=== PATIENT | female | born 1960 | race Caucasian/White ===

== ENCOUNTER 2024-01-25 07:29 | Day surgery (SDC) | payer MEDICARE, SELFPAY ==
[2024-01-25 07:46] VITALS: BP 133/79; PULSE 86; RESP 16; TEMP 36.4; O2SAT 96; BMI 21.2
[2024-01-25] MEDS: Lactated Ringers 1,000 ML 15 ML IV (07:49)
--- NOTE | 2024-01-25 08:46 | PCM.HP.BLA ---
History and Physical Date of Admission: 01/25/24 Date of Service: 01/21/24 MR#: [id number] Acct: [id number] Name: MONIKA REY Rep #: [id number] : 1960 Provider: Dr. Cristela Chavis MD Age/Sex: 64/F Location: [facility] Status: Signed Intake Vital Signs 01/11/2409:15 01/11/2410:01/20/2413:35 Height 5 ft 1 in 5 ft 1 in 5 ft 1 in Weight: 118 lb 117 lb BMI 22.3 22.1 BP 121/78 H 133/72 H Blood Pressure Location Lt brachial Rt brachial Position Sitting Sitting Respiration 18 18 Pulse 90 90 Pulse Source Monitor Monitor Temp 97.9 F 97.4 F L Temp Source Temporal Pulse Oximetry (%) 96 Oxygen Delivery Method room air Intake Visit Reasons: Colonoscopy and EGD Chief Complaint: colonoscopy EGD Is patient in pain?: No Allergies Penicillins Allergy (Unknown, Verified 01/21/24 13:36) hives Medications ?Medication ?Instructions ?Recorded ?Confirmed ?Type citalopram 10 mg tablet 10 mg PO DAILY 11/15/23 12/09/23 History cyclobenzaprine 5 mg tablet 5 mg PO TID PRN 11/15/23 12/09/23 History tramadol 50 mg tablet 50 mg PO TID PRN 11/15/23 12/09/23 History allergy shots IM .weekly 11/25/23 12/09/23 History multivitamin 1 tab PO DAILY 11/25/23 12/09/23 History ferrous sulfate 325 mg (65 mg 325 mg PO DAILY 01/12/24 01/12/24 History iron) tablet omeprazole 40 mg capsule,delayed 40 mg PO QDAY #30 caps 01/21/24 01/21/24 Rx release PFSH Medical History Squamous cell carcinoma GERD (gastroesophageal reflux disease) CLL (chronic lymphocytic leukemia) Anemia Surgical History History of bunionectomy of right great toe History of tonsillectomy History of hysterectomy History of cervical biopsy Family History Sister Breast cancerUnknown CLL (chronic lymphocytic leukemia) 2 first cousins Social History Smoking Status: Former smoker quit date: 11/25/23 Tobacco: How many years used: 7 alcohol intake: never substance use type: does not use HPI HPI HPI: 64-year-old female presents for EGD and colonoscopy. Patient has a past medical history for CLL has had an increase in her leukocytosis from 145?209 did see hematology/oncology who encouraged patient to get EGD and colonoscopy as patient has also been having abdominal pain and nausea. Patient states she is never had an EGD. Patient's last colonoscopy was about 2 years ago in [place] had a tubular normal at that time. Patient states that she does have issues with chronic constipation and does feel sick every time she has a bowel movement which involves sweating nausea, this has been chronic. Patient states in her 20s they may have discussed lateral sphincterotomy due to possible fissure, which is the best patient can remember. Patient states lately she has not been eating as much because the epigastric pain and nausea. Patient was hospitalized in [place] in September patient states she was put on sounds like Protonix which helped. Patient did run out she only had it for 30 days. Currently on lansoprazole which patient states not help as much. Patient does drink place 1 protein drinks a day was trying to do some intermittent fasting as she was doing that previously when she was feeling well as well. ROS General General: Yes weight change and fatigue; No appetite, colon cancer, breast cancer or weakness HEENT HEENT: Yes eye surgery and swollen glands; No difficulty swallowing, eye injury or hoarseness Endo Endocrine: No thyroid disease, diabetes mellitus, thyroid cancer, Hair loss, heat intolerance or cold intolerance Skin Skin: Yes changing moles; No rash Musc Musculoskeletal: Yes back problems; No arthritis, rheumatoid arthritis, gout or joint pain Cardio Cardiovascular: No murmur, pacemaker, heart disease, atrial fibrillation, high blood pressure, heart attack, heart stent, palpitations, shortness of breat with exertion or chest pain Psych Psychiatric: Yes anxiety; No depression or hearing voices Resp Respiratory: No shortness of breath, No sleep apnea, No cough, No COPD, No asthma, No emphysema and No wheezing Gastro Gastrointestinal: Yes abdominal pain, Yes nausea or vomiting, No diarrhea, Yes constipation, No blood in stool, No acid reflux, Yes hemorrhoids, No ulcers, No gallbladder problem and No black,tarry stools Jermaine Hematologic: No blood thinners, No blood disorders, No bleeding, Yes anemia and No blood clots Neuro Neurologic: No numbness, No tingling and No weakness Exam Const General: cooperative, healthy appearing, comfortable and no acute distress HENMT Head: normocephalic and atraumatic Neck Neck: supple Resp Effort & Inspection: normal respiratory effort Cardio Rate: regular rate GI Inspection: non-distended Palpation: soft, no hernias and tender in the epigastrum; with no rebound tenderness Skin General: no rashes or lesions noted Neuro General: CN's II-XI intact bilaterally Extrem General: normal to inspection Psych Mental Status: mental status grossly normal Attitude: cooperative Assessment and Plan Assessment and Plan (1) GERD (gastroesophageal reflux disease): Status: Chronic (2) Epigastric pain: Status: Acute (3) Constipation: Status: Acute Medications: New omeprazole swallow whole; do not crush, chew, dissolve, cut, break 40 mg PO QDAY 30 caps 5RF Discontinued pantoprazole Discontinued Reason: Order Changed 40 mg PO DAILY lansoprazole Discontinued Reason: Order Changed 15 mg PO QDAY Plan Will give patient a prescription for omeprazole 40 mg p.o. daily with refills. Will stop the Protonix and lansoprazole as patient ran out of Protonix. Also encourage patient not to do the intermittent fasting currently as if she is not eating enough because of the nausea restricting the amount of time that she is allowed to eat we will just further decrease her p.o. Did encourage protein drinks which patient does states she drinks 1 up with 30 mg daily. I have discussed the above with the patient. I have offered the patient esophagogastroduodenoscopy and colonoscopy for evaluation. I have explained the risks/benefits of the procedure and described the procedure. I have discussed the risks with the patient, including but not limited to: infection, bleeding, perforation of the GI tract requiring emergency surgery, inability to complete the procedure, injury to any internal organs, complications of anesthesia, etc. - the patient understands and agrees to proceed. I have answered all the patient's questions to the patient's satisfaction and the patient has no further questions. The patient has been given instructions for the colon cleansing preparation. 1 day of clears, MiraLAX Dulcolax split prep. Cristela Chavis M.D. Pager: [phone] [facility] [address] [place] [address], [address] [place] [address] Office: [phone] Coding Level of Care Code Off vis,new,level 3 Diagnoses GERD (gastroesophageal reflux disease) K21.9 Epigastric pain R10.13 Constipation K59.00 01/21/24 1400 <Electronically signed by Cristela Chavis MD> Date Cristela Chavis MD
--- NOTE | 2024-01-25 09:30 | COLBX_PTH ---
PATIENT: MONIKA REY LOC: EN U#:[id number] AGE/SX: 64/F ROOM: RE01/25/[address]: Dr. Cristela Chavis MD : 1960 BED: DIS: 01/25/2024 SPEC #: [id number] RECD: 01/25/24 10:50 STATUS: KERMIT CADEN #: [id number] GABRIEL: 01/25/24 09:[address]: Cristela Chavis DEPT: SURGICAL PATHOLOGY RECD BY: Moises Sinclair ENTERED: 01/25/24 11:55 SP TYPE: COLON BX OTHR DR: MD Bing Ordoñez PA Tissues: Stomach, NOS Procedures: Surgery Specimen Level IV HEADER OPERATION: Colonoscopy with biopsy PRE-OP DIAGNOSIS: GERD, epigastric pain, constipation TISSUE SUBMITTED: Antrum biopsy MICROSCOPIC DIAGNOSIS Gastric antrum, biopsy: Chronic gastritis. AM/ 01/26/2024 COMMENT The results of immunohistochemistry for Helicobacter pylori will be reported separately ([id number]). MICROSCOPIC DESCRIPTION Slides are reviewed. GROSS DESCRIPTION Received in fixative is one container labeled with the patient's name and designated Antrum biopsy. The specimen consists of two irregular fragments of light umanzor soft tissue that measures 0.5 x 0.4 x 0.1 cm. The specimen is totally submitted in one cassette. MOE/ 01/25/2024 TC:3 CPT:47889
--- NOTE | 2024-01-25 09:30 | IMM_PTH ---
PATIENT: MONIKA REY LOC: EN U#:[id number] AGE/SX: 64/F ROOM: RE01/25/[address]: Dr. Cristela Chavis MD : 1960 BED: DIS: 01/25/2024 SPEC #: [id number] RECD: 01/25/24 11:08 STATUS: KERMIT REDavid #: [id number] GABRIEL: 01/25/24 09:[address]: Cristela Chavis DEPT: IMMUNOHISTOCHEMISTRY RECD BY: Ki Fuentes ENTERED: 01/25/24 11:08 SP TYPE: IMMUNO OTHR DR: Dr. Lan Valle MD [place], [place] Tissues: Gastric mucous membrane Procedures: H Pylori (initial) PHYSICIAN & [place] [id number] SPECIMEN INFORMATION: Tissue Source: Antrum biopsy Clinical Info: GERD, epigastric pain, constipation Specimen Number: [id number] CPT code: 02424 METHODOLOGY: Deparaffinized sections of prefer/formalin-fixed tissue or PAP/DQ stained slides are incubated with monoclonal/polyclonal antibodies/oligonucleotide probes. Localization is made via biotin free immunoperoxidase method. Appropriate controls are performed and reacted as expected. Results on target cell population are indicated in the following table: RESULTS: ANTIBODY / CLONE RESULT H Pylori (polyclonal) negative These tests were developed and their performance characteristics determined by [facility]. They may not have been cleared or approved by the U.S. Food and Drug Administration. The FDA has determined that such clearance or approval is not necessary. The above immunohistochemical/dualISH markers are ordered and reviewed by the Pathologist. INTERPRETATION: Gastric antrum, biopsy: Negative for Helicobacter pylori organisms. CRISTAL/ 01/26/2024
[2024-01-25 09:42] VITALS: BP 127/79; BP 133/79; PULSE 88; RESP 16; TEMP 36.8; O2SAT 100
--- NOTE | 2024-01-25 09:44 | OP.CCLET_ITS ---
01/25/2024 Bing Mckenna Re : Upper GI endoscopy procedure for Anrdew Mckenna This procedure was performed on Thursday, January 25, 2024. My impressions and recommendations are as follows: Impressions : - Z-line variable, 40 cm from the incisors. - Normal examined duodenum. - Erythematous mucosa in the antrum. Biopsied. Recommendations : - Await pathology results. - Discharge patient to home. - Resume previous diet. - Continue present medications. My findings are described in the full procedure note, which is enclosed. If I can be of further assistance, please feel free to contact me at Doctor phone number(s): , Work: . Sincerely, MD Cristela Holland MD 01/25/2024 9:43:49 AM This report has been signed electronically.
--- NOTE | 2024-01-25 09:44 | OP.EGD_ITS ---
Patient Name: Andrew Geib Procedure Date: 01/25/2024 8:59 AM Date of : 1960 Age: 64 Procedure: Upper GI endoscopy Indications: Heartburn Providers: Cristela Chavis MD Medicines: Monitored Anesthesia Care Patient Profile: This is a 64 year old female. Complications: No immediate complications. Procedure: Pre-Anesthesia Assessment: - Prior to the procedure, a History and Physical was performed, and patient medications and allergies were reviewed. The patient's tolerance of previous anesthesia was also reviewed. The risks and benefits of the procedure and the sedation options and risks were discussed with the patient. All questions were answered, and informed consent was obtained. Prior Anticoagulants: The patient has taken no anticoagulant or antiplatelet agents. ASA Grade Assessment: Per anesthesia. After reviewing the risks and benefits, the patient was deemed in satisfactory condition to undergo the procedure. After obtaining informed consent, the endoscope was passed under direct vision. Throughout the procedure, the patient's blood pressure, pulse, and oxygen saturations were monitored continuously. The Colonoscope was introduced through the mouth, and advanced to the second part of duodenum. The upper GI endoscopy was accomplished without difficulty. The patient tolerated the procedure well. Scope In: 9:16:18 AM Scope Out: 9:19:46 AM Total Procedure Duration Time 0 hours 3 minutes 28 seconds Findings: The Z-line was variable and was found 40 cm from the incisors. The examined duodenum was normal. The cardia and gastric fundus were normal on retroflexion. Mildly erythematous mucosa without bleeding was found in the gastric antrum. Biopsies were taken with a cold forceps for histology. Biopsies were taken with a cold forceps for Helicobacter pylori cultures. Impression: - Z-line variable, 40 cm from the incisors. - Normal examined duodenum. - Erythematous mucosa in the antrum. Biopsied. Recommendation: - Await pathology results. - Discharge patient to home. - Resume previous diet. - Continue present medications. Procedure Code(s): --- Professional --- 81994, Esophagogastroduodenoscopy, flexible, transoral; with biopsy, single or multiple Diagnosis Code(s): --- Professional --- K22.89, Other specified disease of esophagus K31.89, Other diseases of stomach and duodenum R12, Heartburn CPT copyright 2021 [employer]. All rights reserved. The codes documented in this report are preliminary and upon command and control specialist review may be revised to meet current compliance requirements. MD Cristela Holland MD 01/25/2024 9:43:49 AM This report has been signed electronically. Number of Addenda: 0 Note Initiated On: 01/25/2024 8:59 AM
[2024-01-25 09:45] VITALS: BP 115/73; BP 133/79; PULSE 90; RESP 16; O2SAT 100
--- NOTE | 2024-01-25 09:47 | OP.CCLET_ITS ---
01/25/2024 Bing Mckenna Re : Colonoscopy procedure for Andrew Triana Deashady Mckenna This procedure was performed on Thursday, January 25, 2024. My impressions and recommendations are as follows: Impressions : - Hemorrhoids found on perianal exam. - Non-bleeding internal hemorrhoids. - Melanosis in the colon. - The examination was otherwise normal. - No specimens collected. Recommendations : - Discharge patient to home. - Resume previous diet. - Continue present medications. - Repeat colonoscopy in 10 years for screening purposes. My findings are described in the full procedure note, which is enclosed. If I can be of further assistance, please feel free to contact me at Doctor phone number(s): , Work: . Sincerely, MD Cristela Holland MD 01/25/2024 9:46:59 AM This report has been signed electronically.
--- NOTE | 2024-01-25 09:47 | OP.COLON_ITS ---
Patient Name: Andrew Triana Procedure Date: 01/25/2024 9:20 AM Date of : 1960 Age: 64 Procedure: Colonoscopy Indications: Constipation Providers: Cristela Chavis MD Medicines: Monitored Anesthesia Care Patient Profile: This is a 64 year old female. Last Colonoscopy: 2020. hx of CLL with increased WBC to 209 Complications: No immediate complications. Procedure: Pre-Anesthesia Assessment: - Prior to the procedure, a History and Physical was performed, and patient medications and allergies were reviewed. The patient's tolerance of previous anesthesia was also reviewed. The risks and benefits of the procedure and the sedation options and risks were discussed with the patient. All questions were answered, and informed consent was obtained. Prior Anticoagulants: The patient has taken no anticoagulant or antiplatelet agents. ASA Grade Assessment: Per anesthesia. After reviewing the risks and benefits, the patient was deemed in satisfactory condition to undergo the procedure. After I obtained informed consent, the scope was passed under direct vision. Throughout the procedure, the patient's blood pressure, pulse, and oxygen saturations were monitored continuously. The Colonoscope was introduced through the anus and advanced to the cecum, identified by the appendiceal orifice, ileocecal valve and palpation. The colonoscopy was performed without difficulty. The patient tolerated the procedure well. The quality of the bowel preparation was good. Scope In: 9:20:56 AM Scope Withdrawal Time 0 hours 9 minutes 46 seconds Scope Out: 9:35:39 AM Total Procedure Duration Time 0 hours 14 minutes 43 seconds Findings: Hemorrhoids were found on perianal exam. Non-bleeding internal hemorrhoids were found. The hemorrhoids were Grade I (internal hemorrhoids that do not prolapse). An area of mild melanosis was found in the entire colon. The exam was otherwise without abnormality. Impression: - Hemorrhoids found on perianal exam. - Non-bleeding internal hemorrhoids. - Melanosis in the colon. - The examination was otherwise normal. - No specimens collected. Recommendation: - Discharge patient to home. - Resume previous diet. - Continue present medications. - Repeat colonoscopy in 10 years for screening purposes. Procedure Code(s): --- Professional --- 44166, Colonoscopy, flexible; diagnostic, including collection of specimen(s) by brushing or washing, when performed (separate procedure) Diagnosis Code(s): --- Professional --- K64.0, First degree hemorrhoids K63.89, Other specified diseases of intestine K59.00, Constipation, unspecified CPT copyright 2021 [employer]. All rights reserved. The codes documented in this report are preliminary and upon highway worker review may be revised to meet current compliance requirements. MD Cristela Holland MD 01/25/2024 9:46:59 AM This report has been signed electronically. Number of Addenda: 0 Note Initiated On: 01/25/2024 9:20 AM
[2024-01-25 09:50] VITALS: BP 124/69; BP 133/79; PULSE 82; RESP 16; O2SAT 100
[2024-01-25 09:54] VITALS: BP 132/68; BP 133/79; PULSE 81; RESP 16; TEMP 36.5; O2SAT 100
[2024-01-25 10:07] VITALS: BP 133/79
== END 2024-01-25 10:27 | disposition home or self-care (01) ==
LOC: EN 07:33 → AC 07:33
PROVIDERS: PCP Physician Assistant; Referring Provider Physician Assistant; Visit Provider Surgery
PROC: 0DJD8ZZ Inspection of Lower Intestinal Tract, Via Natural or Artificial Opening Endoscopic (ICD-10-PCS; CPT 45378; principal; 2024-01-25 09:25)
DX: K21.9 Gastro-esophageal reflux disease without esophagitis (principal); K63.89 Other specified diseases of intestine; K64.0 First degree hemorrhoids; K59.00 Constipation, unspecified; K29.50 Unspecified chronic gastritis without bleeding; R13.10 Dysphagia, unspecified; F41.9 Anxiety disorder, unspecified; K31.89 Other diseases of stomach and duodenum; Z79.899 Other long term (current) drug therapy; Z87.891 Personal history of nicotine dependence
CPT/HCPCS: 45378; 43239; 88305; 88342; J7120; J2405

== ENCOUNTER 2024-02-25 09:27 | Day surgery (SDC) | payer MEDICARE, SELFPAY ==
[2024-02-25] VITALS (8 sets, daily range): BP systolic 129–140; BP diastolic 67–76; PULSE 72–87; RESP 16–17; TEMP 36.2–36.8; O2SAT 93–100
--- NOTE | 2024-02-25 09:51 | HP.PCM_ITS ---
History and Physical Date of Admission: 02/25/24 Date of Service: 02/15/24 MR#: [id number] Acct: [id number] Name: MONIKA REY Rep #: [id number] : 1960 Provider: Dr. Cristela Chavis MD Age/Sex: 64/F Location: [facility] Status: Signed Intake Vital Signs 02/07/2415:08 02/13/2410:14 02/14/2414:52 Height 5 ft 1 in 5 ft 1 in 5 ft 1 in Weight: 116 lb BMI 21.9 BP 112/65 Blood Pressure Location Rt brachial Position Sitting Respiration 17 Pulse 75 Pulse Source Monitor Temp 98 F Temp Source Temporal Pulse Oximetry (%) 98 Oxygen Delivery Method room air Intake Visit Reasons: PORT PLACEMENT Chief Complaint: port placement Is patient in pain?: No Allergies Penicillins Allergy (Unknown, Verified 02/15/24 14:55) hives Medications ?Medication ?Instructions ?Recorded ?Confirmed ?Type citalopram 10 mg tablet 10 mg PO DAILY 11/15/23 02/15/24 History cyclobenzaprine 5 mg tablet 5 mg PO TID PRN pain 11/15/23 02/15/24 History tramadol 50 mg tablet 50 mg PO TID PRN pain (scale score 11/15/23 02/15/24 History 1-3) allergy shots See Rx Instructions IM .weekly 11/25/23 02/15/24 History ferrous sulfate 325 mg (65 mg 325 mg PO DAILY 01/12/24 02/15/24 History iron) tablet omeprazole 40 mg capsule,delayed 40 mg PO QDAY #30 caps 01/21/24 02/15/24 Rx release ascorbic acid (vitamin C) 500 mg 500 mg PO DAILY 01/24/24 02/15/24 History tablet,extended release (C Complex) fluticasone propionate 50 1 spray intranasal DAILY PRN 01/24/24 02/15/24 History mcg/actuation nasal allergy symptoms spray,suspension (24 Hour Allergy Relief) loratadine 5 mg-pseudoephedrine ER 1 tab PO DAILY PRN allergy symptoms 01/24/24 02/15/24 History 120 mg tablet,extended release,12hr (Alavert D-12 Allergy-Sinus) polyethylene glycol 3350 17 4 g PO DAILY 01/24/24 02/15/24 History gram/dose oral powder (ClearLax) phenylephrine-acetaminophen 5 1 tab PO Q4-6H PRN 02/08/24 02/15/24 History mg-325 mg tablet (Tylenol Sinus Headache) acyclovir 400 mg tablet 400 mg PO BID #60 tabs 02/14/24 02/15/24 Rx allopurinol 300 mg tablet 300 mg PO DAILY 30 days #30 tabs 02/14/24 02/15/24 Rx lidocaine-prilocaine 2.5 %-2.5 % 1 applic topical ONCE PRN port 02/14/24 02/15/24 Rx topical cream access 30 days #30 grams ondansetron 4 mg disintegrating 4 mg PO Q8H PRN nausea and 02/14/24 02/15/24 Rx tablet vomiting #30 tabs sulfamethoxazole 800 1 tab PO DAILY #30 TABLETS 02/14/24 02/15/24 Rx mg-trimethoprim 160 mg tablet Have you fallen in the past year?: No PFSH Medical History (Updated 02/15/24 @ 14:51 by Debbie Fink) Encounter for education Hyperkalemia Wears glasses Wears contact lenses Cancer Anxiety Arthritis Hepatitis Easy bruising Excessive bleeding History of leukemia Migraine headache Back pain Injury of back Injury of head and neck Former smoker Shortness of breath on exertion Leg cramps History of pain when walking History of stress test Squamous cell carcinoma GERD (gastroesophageal reflux disease) CLL (chronic lymphocytic leukemia) Anemia Surgical History History of bunionectomy of right great toe History of tonsillectomy History of hysterectomy History of cervical biopsy Family History Sister Breast cancerUnknown CLL (chronic lymphocytic leukemia) 2 first cousins Social History Smoking Status: Former smoker quit date: 11/25/23 Tobacco: How many years used: 7 alcohol intake: never substance use type: does not use HPI HPI HPI: 64-year-old female presents for port placement due to CLL. Patient is planned to start chemotherapy on February 28. ROS General General: Yes weight change and fatigue; No appetite, colon cancer, breast cancer or weakness HEENT HEENT: Yes eye surgery and swollen glands; No difficulty swallowing, eye injury or hoarseness Endo Endocrine: No thyroid disease, diabetes mellitus, thyroid cancer, Hair loss, heat intolerance or cold intolerance Skin Skin: Yes changing moles; No rash Musc Musculoskeletal: Yes back problems; No arthritis, rheumatoid arthritis, gout or joint pain Cardio Cardiovascular: No murmur, pacemaker, heart disease, atrial fibrillation, high blood pressure, heart attack, heart stent, palpitations, shortness of breat with exertion or chest pain Psych Psychiatric: Yes anxiety; No depression or hearing voices Resp Respiratory: No shortness of breath, No sleep apnea, No cough, No COPD, No asthma, No emphysema and No wheezing Gastro Gastrointestinal: Yes abdominal pain, Yes nausea or vomiting, No diarrhea, Yes constipation, No blood in stool, No acid reflux, Yes hemorrhoids, No ulcers, No gallbladder problem and No black,tarry stools Jermaine Hematologic: No blood thinners, No blood disorders, No bleeding, Yes anemia and No blood clots Neuro Neurologic: No numbness, No tingling and No weakness Exam Const General: cooperative, healthy appearing, comfortable and no acute distress [facility] Head: normocephalic and atraumatic Neck Neck: supple Chest Other: Palpation of bilateral upper chest normal Resp Effort & Inspection: normal respiratory effort Cardio Rate: regular rate GI Inspection: non-distended Skin General: no rashes or lesions noted Neuro General: CN's II-XI intact bilaterally Extrem General: normal to inspection Psych Mental Status: mental status grossly normal Attitude: cooperative Assessment and Plan Assessment and Plan (1) Encounter for insertion of venous access port: Status: Acute (2) CLL (chronic lymphocytic leukemia): Status: Chronic Plan I have discussed above with the patient- Port-a-Cath placement. Right possible left Patient has been counseled as to the risks/benefits of the procedure. I have explained the risks of the surgery, including but not limited to: infection, bleeding, injury to any blood vessels/nerves, injury to lungs (such as pneumothorax or hemothorax and need for chest tube), not having any access, nonfunctioning of port due to thrombosis, infection of port, etc. the patient understands and agrees to proceed. I have answered all the patient's questions to the patient?s satisfaction and the patient has no further questions. Cristela Chavis M.D. Pager: [phone] [facility] [address] [place] [address], [address] [place] [address] Office: [phone] Coding Level of Care Code Off vis,est,level 3 Diagnoses Encounter for insertion of venous access port Z45.2 CLL (chronic lymphocytic leukemia) C91.10 Clinical Quality Measures Falls Risk Screening/Assistive Devices Have you fallen in the past year?: No 02/17/24 0967 <Electronically signed by Cristela Chavis MD> Date Cristela Chavis MD
[2024-02-25] MEDS: Lactated Ringers 1,000 ML 15 ML IV (10:10)
[2024-02-25] MEDS: Lidocaine 1% /Epi 1:100 (20ml) 20 ML Vial (10:17)
--- NOTE | 2024-02-25 10:41 | PRE.ANES_ITS ---
ASA Classification* ASA Classification ASA Classification: 2 Assessment & Plan Anesthesia* Anesthesia Assessment Anesthesia Assessment: Discussed sedation and/or anesthesia options, risks, benefits, and alternatives with patient/parents/legal guardian/POA. Questions invited. The patient/parents/legal guardian/POA seems to understand and agrees to proceed with anesthesia plan. Reviewed the physical assessment, medical history, allergy history and patient home medications list prior to surgery/procedure/anesthetic and documented any changes. Performed airway and anesthesia risk assessments. Anesthesia Type Anesthesia Type: MAC History Source History Obtained from:: Patient and Chart Anesthesia Focused Assessment* Temperature: 97.9 F Pulse Rate: 72 Blood Pressure: 129/71 Respiratory Rate: 16 Pulse Ox: 100 Oxygen Delivery Method: Room Air Airway Assessment Mouth opens: >3 cm Mallampati Score: II Teeth Condition: Caps/Crowns (Many crowns. All tight) Neck Range of motion (ROM): Full ROM Focused Labs Anesthesia Preop lab: CBC WBC 279.0 K/mm3 (4.4-11.0) H* 02/08/24 14:49 RBC 3.63 M/mm3 (4.2-5.4) L 02/08/24 14:49 Hgb 10.0 g/dL (12.0-15.0) L 02/08/24 14:49 Hct 35.2 % (37-47) L 02/08/24 14:49 Plt Count 160 K/mm3 (150-450) 02/08/24 14:49 CHEMISTRY Potassium 6.7 mmol/L (3.5-5.1) H* 02/08/24 14:49 Sodium 134 mmol/L (136-145) L 02/08/24 14:49 Magnesium 2.5 mg/dL (1.6-2.6) 11/25/23 10:08 Phosphorus 3.5 mg/dL (2.5-4.9) 11/25/23 10:08 BUN 25 mg/dL (7-18) H 02/08/24 14:49 Creatinine 0.93 mg/dL (0.55-1.02) 02/08/24 14:49 Glucose 100 mg/dL (74-106) 02/08/24 14:49 COAG Pre-Assessment Diagnosis/Proposed Procedure Planned Operative Procedure(s): RIGHT POSS LEFT INTERNAL JUGULAR PORT PLACEMENT Anesthesia History 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 When Was Last Pacemaker Check QUESTION #4 FULL TEXT: You/Your Family Experience fever (hyperthermia) with Anesthesia Last Oral Intake Last Oral intake: Last Oral Intake NPO since 18:00 02/25/24 09:50 Meds taken in AM with sips of Yes 02/25/24 09:50 water? Meds patient instructed to omeprazole, tramadol 02/25/24 09:50 take am of surgery PONV PONV - political science instructor: PONV - political science instructor Female Yes 02/18/24 10:50 HX of Motion Sickness Yes 02/18/24 10:50 HX of N/V After Surgery No 02/18/24 10:50 Non-Smoker Yes 02/18/24 10:50 Duration of Surgery greater No 02/18/24 10:50 than 60 minutes Number of Risk Factors 3 02/18/24 10:50 PONV Score Moderate Risk 02/18/24 10:50 Height & Weight Height & Weight: Anesthesia: Height & Weight Height 5 ft 1 in 02/25/24 09:50 Weight: 52.617 kg 02/23/24 07:02 Respiratory Assessment Respiratory Assessment - political science instructor: Respiratory Tract Infection Hx - political science instructor Hx Respiratory Tract Infection No 02/18/24 10:50 STOP Sleep Apnea STOP Sleep Apnea - political science instructor: STOP Sleep Apnea - political science instructor Hx Hypertension No 02/18/24 10:50 Hx Sleep Apnea No 02/18/24 10:50 CPAP BIPAP Do you snore loudly (louder No 02/18/24 10:50 than talking or can be heard Do you often feel tired/ No 02/18/24 10:50 fatigued/ sleepy during daytime? Has anyone observed you stop No 02/18/24 10:50 breathing during sleep? STOP Results Negative 02/18/24 10:50 QUESTION #5 FULL TEXT : Do you snore loudly (louder than talking or can be heard through closed doors)? Tobacco Use History Tobacco Use History - political science instructor: Tobacco Use History - political science instructor Tobacco Use Smoking Status Former smoker 02/18/24 10:50 Hx Tobacco Use No 02/18/24 10:50 Years Smoking Packs Smoked per Day Smoking Cessation Date was Yes - quit smoking within 15 02/18/24 10:50 within the last 15 years years Hx Smoking Cessation Date quit smoking in 1982 Hx Smoking Cessation No 02/18/24 10:50 Counseling Quit smoking 1982. Hematologic Medial History Hematologic Hx - political science instructor: Hematologic Medical Hx - data keyer Hx of Blood Transfusion No 02/18/24 10:50 Hx of Transfusion in last 3 No 02/18/24 10:50 Months Date of Last Transfusion (if within last 3 months) Ever experience any problems No 02/18/24 10:50 with transfusion(s)? Specify any problems Hx of Preganancy in last 3 No 02/18/24 10:50 Months Nurse Filling Out Transfusion DSCHRIBER 02/18/24 10:50 & Questions: Date: 02/18/24 02/18/24 10:50 Time: 10:51 02/18/24 10:50 Patient unable to answer at this time (ie. confused, unrespo /Reproduction History /Reproductive History - political science instructor: /Reproductive Hx- political science instructor Hx Now Gestational Age (in weeks): EDC: Hx Hx Para Hx Section SAB Active Medications Active Medications: Current Medications Generic Name Dose Route Start Last Admin Trade Name Freq PRN Reason Stop Dose Admin Clindamycin Phosphate 900 mg in 50 mls @ 75 mls/hr 02/25/24 11:10 Cleocin IV 02/25/24 11:49 PREOP ONE Lactated Ringer's 1,000 mls @ 15 mls/hr 02/25/24 09:45 02/25/24 10:10 IV 15 mls/hr .Q48H BELTRAN Administration PFSH Medical History Gastritis Encounter for education Hyperkalemia Wears glasses Wears contact lenses Cancer Anxiety Arthritis Hepatitis Easy bruising Excessive bleeding History of leukemia Migraine headache Back pain Injury of back Injury of head and neck Former smoker Shortness of breath on exertion Leg cramps History of pain when walking History of stress test Squamous cell carcinoma GERD (gastroesophageal reflux disease) CLL (chronic lymphocytic leukemia) Anemia Home Medications ?Medication ?Instructions ?Recorded ?Last Taken ?Type citalopram 10 mg tablet 10 mg PO DAILY 11/15/23 Unknown History cyclobenzaprine 5 mg tablet 5 mg PO TID PRN pain 11/15/23 Unknown History tramadol 50 mg tablet 50 mg PO TID pain (scale score 1-3) 11/15/23 02/25/24 History allergy shots See Rx Instructions IM .weekly 11/25/23 Unknown History omeprazole 40 mg capsule,delayed 40 mg PO QDAY #30 caps 01/21/24 02/25/24 Rx release fluticasone propionate 50 1 spray intranasal DAILY PRN 01/24/24 Unknown History mcg/actuation nasal allergy symptoms spray,suspension (24 Hour Allergy Relief) loratadine 5 mg-pseudoephedrine ER 1 tab PO DAILY PRN allergy symptoms 01/24/24 Unknown History 120 mg tablet,extended release,12hr (Alavert D-12 Allergy-Sinus) polyethylene glycol 3350 17 4 g PO DAILY 01/24/24 Unknown History gram/dose oral powder (ClearLax) phenylephrine-acetaminophen 5 1 tab PO Q4-6H PRN sinus symptoms 02/08/24 Unknown History mg-325 mg tablet (Tylenol Sinus Headache) allopurinol 300 mg tablet 300 mg PO DAILY 30 days #30 tabs 02/14/24 Unknown Rx lidocaine-prilocaine 2.5 %-2.5 % 1 applic topical ONCE PRN port 02/14/24 Unknown Rx topical cream access 30 days #30 grams ondansetron 4 mg disintegrating 4 mg PO Q8H PRN nausea and 02/14/24 Unknown Rx tablet vomiting #30 tabs sulfamethoxazole 800 1 tab PO DAILY #30 TABLETS 02/14/24 Unknown Rx mg-trimethoprim 160 mg tablet acyclovir 400 mg tablet 400 mg PO BID 02/18/24 Unknown History Allergy/AdvReac Type Severity Reaction Status Date / Time Penicillins Allergy Unknown hives Verified 02/18/24 10:40 Family History Sister Breast cancer Unknown CLL (chronic lymphocytic leukemia) 2 first cousins Surgical History Hx of colonoscopy History of bunionectomy of right great toe History of tonsillectomy History of hysterectomy History of cervical biopsy Social History Smoking Status: Former smoker quit date: 11/25/23 Tobacco: How many years used: 7 alcohol intake: never substance use type: does not use Review of Systems (Anesthesia) ROS Narrative System reviewed and no additional complaints, except as documented.
[2024-02-25] MEDS: Clindamycin 900 MG/50 ML BAG 75 MG IV (11:11)
[2024-02-25] MEDS: Bupivacaine Mpf 0.5% 30 ML VIAL ×2 (11:35)
--- NOTE | 2024-02-25 11:48 | OP.PCM_ITS ---
Report of Operation Date of Procedure: 02/25/24 Pre-Operative Diagnosis: z45.2, CLL Post-Operative Diagnosis: Same Surgery/Procedure Performed:: 1. Placement of right IJ Port-A-Cath Fluoroscopy Use ultrasound Surgeon: Cristela Chavis Type of Anesthesia: Local MAC Anesthesiologist: Davide Rice Special Medications: Clindamycin 900 mg IV x 1 Specimen's removed: None Estimated Blood Loss (mL): < 10 cc Description of Procedure: After informed consent was given, the patient was brought to the operating room and placed in the supine position. Appropriate time out protocol was followed. Patient was then given IV conscious sedation for anesthesia. The patient's right upper chest and neck were then prepped with a surgical skin preparation and sterile surgical drapes were placed. After proper landmarks were ascertained, the skin at the upper right chest area was then infiltrated with 1:1 mixture of 1% lidocaine with epinephrine and 0.5% marcaine. A needle trocar was then inserted into the right internal jugular vein with ultrasound guidance-multiple vessels were viewed with u/s and the right IJ was chosen-- and there was good aspiration of venous blood. A wire was then threaded into the needle trocar and this was visualized under fluoroscopy to ensure that the wire was in the superior vena cava. Once this was done, then the needle trocar was removed. A small skin parminder was made with an 11 blade knife at the wire entrance site. The dilator with the introducer sheath attached was then placed over the wire into the right internal jugular vein via the Seldinger technique and this was visualized under fluoroscopy. The dilator and sheath were in proper position as visualized by fluoroscopy. A subcutaneous pocket was then created caudad to the catheter insertion site. A transverse skin incision was made after the skin and subcutaneous tissues were infiltrated with local anesthetic. Blunt dissection was then used to create a space large enough for placement of the subcutaneous port. The catheter was then tunneled into the subcutaneous pocket. The wire and dilator were then removed. The catheter was then threaded into the introducer sheath and was positioned with its tip at the junction of the superior vena cava and the right atrium as visualized under fluoroscopy. The excess catheter was transected. The catheter was then attached to the subcutaneous port using manufacturers guidelines. The catheter was flushed with a heparin saline mixture prior to placement. Hemostasis was carefully controlled with electrocautery. The port was sutured to the subcutaneous fascia using 2-0 Vicryl suture at two sites. The port was then placed in the emery bcutaneous pocket. The incision were reapproximated with interrupted subdermal 3-0 vicryl sutures. The skin was reapproximated with 3-0 nylon suture in a interrupted fashion. Steristrips were used for reinforcement of the skin closure at IJ insertion site and a sterile opsite dressings were applied. The patient tolerated the procedure well. Implants Used: [employer] PowerPort isp M.R.I. 6Fr Lot [id number]
--- NOTE | 2024-02-25 11:50 | EX.PCM.DISCH ---
Discharge Instructions Procedure Port-A-Cath Diet Discharge Diet: Light diet - advance as tolerated Activity May shower in (days): 5 (Keep port site clean and dry x5 days. Neck incision okay to get wet after 1 day. Okay to lower shower and upper sponge bath. OR okay to taper off port site with a Ziploc bag to shower) Lifting Restrictions: No lifting > 15 pounds for 3 days with the arm on the side of the port Dressing / Incision Call your doctor if your incision/area has: Continuous Slow Oozing, Sudden Increased Bleeding, Increased Pain/ Swelling, Increased Redness, Foul Smelling Discharge and Swelling at the incision site Call your doctor if you observe: Fever of 101 or Higher Change Dressing in: 2 days (2-3 days- port site; ok to remove neck opsite in 1 day) Follow Up Care Please Follow Up With: Cristela Chavis MD When: In 10 days for permanent suture removal?call office for appointment Test Results: Test results from this visit will be discussed in further detail at your follow-up appointment, if applicable. Discharge Plan Admission Attending Provider: Cristela Chavis Primary Care Provider: Bing Mckenna Consulting Providers: Lan Valle Instructions Print Language: Peruvian Discharge Orders/Prescriptions Prescriptions: Continued allergy shots See Rx Instructions IM .weekly Rx Instructions: 1 shot intramuscularly WEEKLY; citalopram 10 mg tablet 10 mg PO DAILY cyclobenzaprine 5 mg tablet 5 mg PO TID PRN (Reason: pain) tramadol 50 mg tablet 50 mg PO TID omeprazole 40 mg capsule,delayed release(DR/EC) 40 mg PO QDAY Qty: 30 5RF Rx Instructions: swallow whole; do not crush, chew, dissolve, cut, break Tylenol Sinus Headache 5-325 mg tablet 1 tab PO Q4-6H PRN (Reason: sinus symptoms) lidocaine-prilocaine 2.5-2.5 % cream 1 applic topical ONCE PRN (Reason: port access) 30 Days Qty: 30 2RF ondansetron 4 mg tablet,disintegrating 4 mg PO Q8H PRN (Reason: nausea and vomiting) Qty: 30 2RF sulfamethoxazole-trimethoprim 800-160 mg tablet 1 tab PO DAILY Qty: 30 5RF Patient Comments: TO START 02/29/24 Alavert D-12 Allergy-Sinus 5-120 mg tablet extended release 12 hr 1 tab PO DAILY PRN (Reason: allergy symptoms) fluticasone propionate [24 Hour Allergy Relief] 50 mcg/actuation spray,suspension 1 spray intranasal DAILY PRN (Reason: allergy symptoms) Rx Instructions: administer into each nostril polyethylene glycol 3350 [ClearLax] 17 gram/dose powder 4 g PO DAILY acyclovir 400 mg tablet 400 mg PO BID Patient Comments: TO START 02/29/24 allopurinol 300 mg tablet 300 mg PO DAILY 30 Days Qty: 30 0RF Referrals / Follow Up: Bing Mckenna PA [Primary Care Provider] - Disposition Disposition (needs filled in before D/C Order can be placed): Home, Self Care
--- NOTE | 2024-02-25 12:00 | RAD_ITS ---
STUDY: X-RAY CHEST REASON FOR EXAM: Female, 64 years old. port -- PORTABLE PACU TECHNIQUE: Single AP portable view of the chest. COMPARISON: None. FINDINGS: Right internal jugular chest port with tip of the catheter overlying the right atrium with no pneumothorax. The lungs are clear and expanded. There is no demonstrated pleural abnormality. Normal size heart. Normal mediastinum and rober. Normal visualized pulmonary arteries. Normal visualized aortic arch and descending thoracic aorta. Normal visualized thoracic spine. Normal visualized ribs, clavicles, and shoulders. There is no demonstrated abnormality of the visualized soft tissue structures of the upper abdomen. RAD/Chest 1 View (Portable) IMPRESSION: 1. Right internal jugular chest port with tip of the catheter overlying the right atrium and no pneumothorax. 2. No active pulmonary disease. Electronically Signed: Bryn Rod MD at 12:42 EDT ,
--- NOTE | 2024-02-25 12:01 | PCM.POST.ANE ---
Anesthesia: Postop Eval I Current Vital Signs Temperature: 97.8 F Pulse Rate: 87 Blood Pressure: 140/72 Respiratory Rate: 17 Pulse Ox: 94 Assessment Airway patent: Yes Spontaneous unlabored respirations: Yes nausea: No Vomiting: No Anesthesia Complication: No Fluid Hydration Crystalloid volume administer (ml): 350 Total IV fluid infused: 350 Progress Note Anesthesia document: Postop Eval 1 completed: Yes
--- NOTE | 2024-02-25 12:02 | POSTOPAN2_ITS ---
Anesthesia Postop Eval I Sum Postop Eval Completion status Anesthesia document: Postop Eval 1 completed: Yes Anesthesia Postop Eval I Summary Anesthesia Postop Eval I Summary: Anesthesia Postop Eval I: Assessment Summary Airway patent Yes 02/25/24 12:01 CONTRACT [email or web address] Spontaneous unlabored Yes 02/25/24 12:01 RAQUEL respirations Mental status nausea No 02/25/24 12:01 CONTRACT [email or web address].MARIN Vomiting No 02/25/24 12:01 RAQUEL Anesthesia Postop Eval I: Fluid Summary Crystalloid volume administer 350 02/25/24 12:01 [email or web address] (ml) Colloids volume administered ( ml) Blood Product volume administered (ml) Total IV fluid infused 350 02/25/24 12:01 RAQUEL Anesthesia Postop Eval I: Summary Notes Anesthesia Complication No 02/25/24 12:01 RAQUEL Anesthesia Complication Comment: Post-operative progress note Anesthesia: Postop Eval II Evaluation Mental status: Awake Pain Level: 0 nausea: No Vomiting: No Complications Anesthesia Complication: No
== END 2024-02-25 12:56 | disposition home or self-care (01) ==
LOC: SDC 09:31 → AC 09:32
PROVIDERS: PCP Physician Assistant; Referring Provider Surgery; Visit Provider Surgery
PROC: (CPT 36561; principal; 2024-02-25 10:55)
DX: Z45.2 Encounter for adjustment and management of vascular access device (principal); C91.10 Chronic lymphocytic leukemia of B-cell type not having achieved remission; Z87.891 Personal history of nicotine dependence; K21.9 Gastro-esophageal reflux disease without esophagitis; F41.9 Anxiety disorder, unspecified; Z79.899 Other long term (current) drug therapy; E78.5 Hyperlipidemia, unspecified
CPT/HCPCS: 36561; 00532; 71045; 77001; J7120; J2405

== ENCOUNTER → 2024-03-27 | Outpatient (CLI) | payer MEDICARE, SELFPAY ==
--- NOTE | 2024-03-27 10:06 | BI_ITS ---
MAMMOGRAPHY - BILATERAL SCREENING 3-D TOMOSYNTHESIS REASON FOR EXAM: Female, 64 years old. Screening for breast cancer. PERTINENT HISTORY: Sr. With breast cancer at age 68. TECHNIQUE: 2-D mammograms and 3-D Tomosynthesis of the breast (s) were performed. CAD was performed. COMPARISON: May 18, 2023 FINDINGS: Heterogeneously dense fibroglandular tissue which may obscure small masses) limits the sensitivity of mammography. Stable normal lymph nodes and scattered benign calcifications. No dominant masses, suspicious calcifications, asymmetries, architectural distortion, skin thickening or nipple retraction. BI/SCRN MAMM (CAD)W/EMA BILAT IMPRESSION: No mammographic signs of malignancy. Routine yearly screening mammogram recommended. ASSESSMENT CATEGORY: BIRADS Category 2: Benign. A letter regarding these results will be sent to the patient by the facility within 30 days. FOLLOW UP RECOMMENDATION: Yearly follow up mammogram recommended. (A) Approximately 10% of breast cancers are not detected by mammography. A normal mammogram should not delay biopsy of a clinically suspicious abnormality. Electronically Signed: Vaibhav Martines MD at 15:55 EDT ,
== END | disposition home or self-care (01) ==
LOC: OPBI 10:05
PROVIDERS: PCP Physician Assistant; Referring Provider Internal Medicine Hematology & Oncology; Visit Provider Internal Medicine Hematology & Oncology
DX: Z12.31 Encounter for screening mammogram for malignant neoplasm of breast (principal)
CPT/HCPCS: 77063; 77067

== ENCOUNTER → 2024-12-25 | Outpatient (CLI) | payer MEDICARE, SELFPAY ==
--- NOTE | 2024-12-25 18:28 | MRI_ITS ---
PROCEDURE: SPINE CERVICAL (ROUTINE) 12/25/2024 REASON FOR EXAM: NECK PAIN TECHNIQUE: Multiplanar and multisequence images were obtained without IV contrast administration. COMPARISON: Cervical spine radiographs 11/20/2024 FINDINGS: Vertebrae: Cervical vertebral body heights are preserved. Bone marrow signal is unremarkable. Alignment: Normal. No spondylolisthesis. Spinal Cord: Cervical spinal cord is of normal size and signal intensities. Structures at the foramen magnum are unremarkable. C2-3: Small disc osteophyte complex, [id number]-right uncinate hypertrophy. No significant canal stenosis. Mild left neural foraminal narrowing. Right neural foramen is patent. C3-4: Disc osteophyte complex, uncinate hypertrophy and facet degenerative changes with mild canal stenosis. Mild bilateral neural foraminal narrowing. C4-5: Disc osteophyte complex, uncinate hypertrophy and facet degenerative changes without significant canal stenosis or neural foraminal narrowing. C5-6: Disc osteophyte complex, uncinate hypertrophy and facet degenerative changes with mild canal stenosis. Neural foramina are patent. C6-7: Disc osteophyte complex, facet degenerative changes with moderate canal stenosis. Mild bilateral neural foraminal narrowing.. C7-T1: Canal and foramina are patent. MRI/Spine Cervical (Routine) IMPRESSION: Multilevel degenerative changes, most prominent at C6-C7 with up to moderate ca nal stenosis and mild bilateral neural foraminal narrowing. Reading Location: [facility]
== END | disposition home or self-care (01) ==
PROVIDERS: PCP Physician Assistant; Referring Provider Orthopaedic Surgery Orthopaedic Surgery of the Spine; Visit Provider Orthopaedic Surgery Orthopaedic Surgery of the Spine
DX: M54.2 Cervicalgia (principal)
CPT/HCPCS: 72141

== ENCOUNTER → 2025-05-01 | Outpatient (CLI) | payer MEDICARE, SELFPAY ==
--- NOTE | 2025-05-01 14:11 | BI_ITS ---
EXAM: SCRN MAMM (CAD)W/EMA BILAT DATE: 05/01/2025 CLINICAL HISTORY: F, Age 65 y/o , SCREENING Sister with breast cancer. TECHNIQUE: Procedure Code: [id number] Modality: MG Procedure: SCRN MAMM (CAD)W/EMA BILAT COMPARISON: Prior exam(s) dated March 30, 2024.. FINDINGS: TISSUE DENSITY: The breasts are extremely dense, which lowers the sensitivity of mammography. Bilateral Breast Mammographic Findings: No significant masses, calcifications or other abnormalities are identified. No suspicious masses, areas of developing architectural distortion, or suspicious calcifications. There has been no significant interval change. BI/SCRN MAMM (CAD)W/EMA BILAT IMPRESSION: Stable screening bilateral mammogram. OVERALL FINAL ASSESSMENT BI-RADS 1: NEGATIVE. RECOMMENDATION: Routine annual follow-up in 1 Year A letter with findings and recommendations will be mailed to the patient. Reading Location: [facility]
== END | disposition home or self-care (01) ==
PROVIDERS: PCP Physician Assistant; Referring Provider Physician Assistant; Visit Provider Physician Assistant
DX: Z12.31 Encounter for screening mammogram for malignant neoplasm of breast (principal)
CPT/HCPCS: 77063; 77067